=== PATIENT | female | born 1985 | race Caucasian/White ===

== ENCOUNTER 2023-03-30 09:06 | Day surgery (SDC) | payer BC ==
[2023-03-30] MEDS ORDERED: Acetaminophen 500 MG TAB ONE (09:17)
[2023-03-30] MEDS ORDERED: Iron Sucrose Complex 500 MG in Sodium Chloride 0.9% 250 ML 250 ML IVPB SCH (09:30)
[2023-03-30] MEDS ORDERED: Acetaminophen 500 MG TAB PO SCH (09:30)
== END 2023-03-30 14:00 | disposition home or self-care (01) ==
LOC: CSHSDC 09:06
PROVIDERS: ATTEND Advanced Practice Midwife
DX: O99.019 Anemia complicating pregnancy, unspecified trimester (principal); D64.9 Anemia, unspecified; Z3A.00 Weeks of gestation of pregnancy not specified
CPT/HCPCS: J1756; J7050

== ENCOUNTER 2023-04-17 09:56 | Inpatient (IN) | payer BC ==
[2023-04-17 10:17] VITALS: BMI 31.8
[2023-04-17 11:15] LABS: ALT (SGPT) 18 U/L (8-55); AST (SGOT) 19 U/L (5-34); Albumin 3.5 g/dL (3.5-5.0); Alkaline Phosphatase 162 U/L (40-110); Anion Gap 15 mmol/L (10-20); BUN (Urea Nitrogen) 7 mg/dL (7.0-18.7); Bilirubin, Total 0.4 mg/dL (0.2-1.2); Calc. Creatinine Clearance 190 mL/min (70-130); Carbon Dioxide 18 mmol/L (22-29); Chloride 108 mmol/L (98-107); Estimated GFR 124; Globulin 3.5 g/dL (2.4-3.5); Glucose 119 mg/dL (70-105); Potassium 3.6 mmol/L (3.5-5.1); Sodium 137 mmol/L (136-145)
[2023-04-17 11:21] LABS: #Eosinphils 0.1 10x3/uL (0.0-0.5); #Monocytes 0.5 10x3/uL (0.0-1.1); #Neutrophils 4.6 10x3/uL (1.5-8.4); %Basophils 0.4 % (0.0-2.0); %Eosinophils 1.9 % (0.0-6.0); %Lymphocytes 26.5 % (18.0-47.0); %Neutrophils 63.1 % (40.0-75.0); Hemoglobin 11.7 g/dL (12.0-15.5); Mean Corpuscular HGB CONC 31.6 g/dL (32.0-36.0); Mean Corpuscular Hemoglobin 20.9 pg (27.0-33.0); Mean Platelet Volume 9.8 fl (7.4-10.4); Platelet Count 372 10x3/uL (150-450); RBC Distribution Width 20.5 % (11.5-14.5); Red Blood Cell (RBC) Count 5.61 10x6/uL (3.90-5.03); White Blood Cell (WBC) Count 7.3 10x3/uL (3.5-10.5)
[2023-04-17 12:13] LABS: Anisocytosis MARKED = >30 cells (100X) (0-5/hpf); Microcytosis MARKED = >30 cells (100X) (0-5/hpf); Platelet Adequacy Comment Appears Adequate
[2023-04-17] MEDS ORDERED: Ibuprofen 800 MG TAB PO PRN (12:49)
[2023-04-17] MEDS ORDERED: Misoprostol 200 MCG TAB PR PRN (12:49)
[2023-04-17] MEDS ORDERED: Calcium Gluc 4.6 MEQ/10 ML (100 MG/ML) SLOW IVP PRN (12:49)
[2023-04-17] MEDS ORDERED: Promethazine HCl 25 MG/ML VIAL IM PRN ×2 (12:49→20:14)
[2023-04-17] MEDS ORDERED: Lidocaine 1% (PF) 30 ML VIAL SC PRN (12:49)
[2023-04-17] MEDS ORDERED: hydrALAZINE 20 MG/ML VIAL SLOW IVP PRN (12:49)
[2023-04-17] MEDS ORDERED: Lorazepam 2 MG/ML VIAL SLOW IVP PRN (12:49)
[2023-04-17] MEDS ORDERED: Ondansetron PF 4 MG/2 ML Vial IVP PRN ×2 (12:49→20:14)
[2023-04-17] MEDS ORDERED: HYDROcodone/Acetaminophen 5/325 mg Tablet PO PRN ×2 (12:49)
[2023-04-17] MEDS ORDERED: Labetalol HCl 100 MG/20 ML VIAL SLOW IVP PRN ×2 (12:49)
[2023-04-17] MEDS ORDERED: Oxytocin 30 units/NS 500 ML 500 ML IV SCH ×2 (13:00)
[2023-04-17] MEDS ORDERED: Lactated Ringer's 1,000 ML IV SCH (13:00)
[2023-04-17 14:15] LABS: Syphilis Antibody Nonreactive (Nonreactive); Syphilis Antibody Index 0.08 S/CO (<1.00 Non-Reactive)
[2023-04-17 14:17] LABS: HBSAg Index 0.15 S/CO (0-0.99); Hep B Surf Ag - L&D Non-Reactive S/CO (NonReactive)
[2023-04-17] MEDS ORDERED: Magnesium Sulfate 20 gm/500 ml 20 GM/500 ML BAG ONE ×2 (20:05→23:50)
[2023-04-17] MEDS: hydrALAZINE 20 MG/ML VIAL SLOW IVP PRN ×2 (20:09→23:53)
[2023-04-17] MEDS ORDERED: fentaNYL/Ropivacaine Epidural 0 ML ONE (20:12)
[2023-04-17] MEDS ORDERED: diphenhydrAMINE 50 MG/ML VIAL IVP PRN (20:14)
[2023-04-17] MEDS ORDERED: Acetaminophen 325 MG TAB PO PRN (20:14)
[2023-04-17] MEDS ORDERED: ePHEDrine Sulfate 50 MG/10 ML VIAL SLOW IVP PRN (20:14)
[2023-04-17] MEDS ORDERED: Lactated Ringer's 500 ML IV PRN (20:14)
[2023-04-17] MEDS ORDERED: Naloxone HCl 0.4 mg/ml Vial IVP PRN ×2 (20:14)
[2023-04-17] MEDS ORDERED: Moisturizing Cream (Eucerin) 113 GM JAR TOP PRN (20:14)
[2023-04-17] MEDS ORDERED: Communication Order-Pharmacy FS SCH (20:15)
[2023-04-17] MEDS ORDERED: fentaNYL 2 mcg/Ropivacaine 0.2% Epidural 100 ML CADD EPIDURAL SCH (20:15)
[2023-04-17] MEDS ORDERED: Lidocaine 1% PF 10 ML AMP ONE ×2 (21:00→22:00)
[2023-04-17] MEDS ORDERED: Lidocaine 1% (PF) 30 ML VIAL ONE (22:01)
[2023-04-17] MEDS ORDERED: fentaNYL 50 mcg/mL 1 mL Vial ONE (22:36)
[2023-04-17] MEDS ORDERED: Tranexamic Acid 1,000 MG/10 ML VIAL ONE (22:41)
[2023-04-17] MEDS ORDERED: Carboprost 250 MCG/ML AMP ONE (22:42)
[2023-04-17] MEDS ORDERED: Methylergonovine 0.2 MG/ML VIAL ONE (22:42)
[2023-04-17] MEDS ORDERED: CEFAZOLIN 2 GM VIAL ONE (23:09)
[2023-04-17] MEDS ORDERED: Benzocaine/Menthol 1 LOZ LOZ PO PRN (23:49)
[2023-04-18] MEDS ORDERED: hydrALAZINE 20 MG/ML VIAL ONE (00:25)
[2023-04-18] MEDS ORDERED: CEFAZOLIN 2 GM VIAL SLOW IVP SCH (06:00)
[2023-04-18] MEDS: Ibuprofen 800 MG TAB PO SCH ×3 (06:12→22:09)
[2023-04-18 06:50] LABS: #Neutrophils 12.5 10x3/uL (1.5-8.4); %Basophils 0.2 % (0.0-2.0); %Eosinophils 0.1 % (0.0-6.0); %Lymphocytes 12.9 % (18.0-47.0); %Monocytes 6.4 % (0.0-10.0); %Neutrophils 79.8 % (40.0-75.0); Hematocrit 29.7 % (34.9-44.5); Hemoglobin 9.7 g/dL (12.0-15.5); Mean Corpuscular HGB CONC 32.7 g/dL (32.0-36.0); Mean Corpuscular Hemoglobin 21.3 pg (27.0-33.0); Mean Corpuscular Volume 65.1 fl (81.6-98.3); Mean Platelet Volume 9.5 fl (7.4-10.4); Platelet Count 309 10x3/uL (150-450); RBC Distribution Width 19.7 % (11.5-14.5); Red Blood Cell (RBC) Count 4.56 10x6/uL (3.90-5.03); White Blood Cell (WBC) Count 15.6 10x3/uL (3.5-10.5)
[2023-04-18 07:09] LABS: Anion Gap 14 mmol/L (10-20); BUN (Urea Nitrogen) 5 mg/dL (7.0-18.7); Calc. Creatinine Clearance 202 mL/min (70-130); Carbon Dioxide 18 mmol/L (22-29); Chloride 105 mmol/L (98-107); Potassium 3.6 mmol/L (3.5-5.1); Sodium 133 mmol/L (136-145)
[2023-04-18 07:10] LABS: ALT (SGPT) 19 U/L (8-55); AST (SGOT) 36 U/L (5-34); Albumin 2.7 g/dL (3.5-5.0); Alkaline Phosphatase 118 U/L (40-110); Bilirubin, Total 0.5 mg/dL (0.2-1.2); Calcium 7.5 mg/dL (7.8-10.44); Estimated GFR 126; Globulin 2.7 g/dL (2.4-3.5); Glucose 113 mg/dL (70-105); Protein, Total 5.4 g/dL (6.0-8.3)
[2023-04-18] MEDS: Magnesium Sulfate 20 gm/500 ml 20 GM/500 ML BAG IVPB SCH ×2 (08:01→17:59)
[2023-04-18] MEDS ORDERED: Boostrix 0.5 ML (Tdap) VIAL (>/=7 yrs of age) IM ONE (20:31)
[2023-04-18] MEDS ORDERED: Milk Of Magnesia 30 ML UDCUP PO PRN (20:31)
[2023-04-18] MEDS ORDERED: HYDROcodone/Acetaminophen 5/325 mg Tablet PO PRN ×2 (20:31)
[2023-04-18] MEDS ORDERED: Lanolin Ointment 7 GM TUBE TOP PRN (20:31)
[2023-04-18] MEDS ORDERED: hydrALAZINE 20 MG/ML VIAL SLOW IVP PRN (20:31)
[2023-04-18] MEDS ORDERED: Bisacodyl 10 MG SUPP PR PRN (20:31)
[2023-04-18] MEDS ORDERED: Benzocaine-Menthol 82.5 ML CAN TOP PRN (20:31)
[2023-04-18] MEDS: NIFEdipine XL 30 MG ER.TAB PO SCH (21:39)
[2023-04-18] MEDS: Docusate 100 MG CAP PO SCH (21:39)
[2023-04-19] MEDS: Ibuprofen 800 MG TAB PO SCH ×3 (05:13→21:16)
[2023-04-19] MEDS: Ferrous Sulfate 325 MG TAB PO SCH ×2 (07:59→17:02)
[2023-04-19] MEDS: Docusate 100 MG CAP PO SCH ×2 (07:59→21:16)
[2023-04-19] MEDS ORDERED: Prenatal Vitamin 1 TAB PO SCH (09:00)
[2023-04-19] MEDS ORDERED: NIFEdipine XL 30 MG ER.TAB PO SCH (21:00)
[2023-04-19] MEDS: NIFEdipine XL 30 MG ER.TAB PO SCH (21:17)
[2023-04-20] MEDS: Ibuprofen 800 MG TAB PO SCH (05:30)
[2023-04-20 07:38] VITALS: BP 138/74; TEMP 97.7
== END 2023-04-20 10:00 | disposition home or self-care (01) | DRG 807 ==
LOC: CSHLD/OP 09:56 → CSHLD 15:21 → CSHANTE 23:45 → CSHLD 04-18 00:06 → CSHPP 04-18 21:00
PROVIDERS: ADMIT Obstetrics & Gynecology; ATTEND Obstetrics & Gynecology
PROC: 10E0XZZ Delivery of Products of Conception, External Approach (ICD-10-PCS; principal; 2023-04-17)
PROC: 3E033XZ Introduction of Vasopressor into Peripheral Vein, Percutaneous Approach (ICD-10-PCS; 2023-04-17)
DX: O14.04 Mild to moderate pre-eclampsia, complicating childbirth (principal); Z37.0 Single live birth; Z3A.38 38 weeks gestation of pregnancy; O09.523 Supervision of elderly multigravida, third trimester; O70.1 Second degree perineal laceration during delivery
CPT/HCPCS: 36415; 80053; 82570; 84156; 85025; 86780; 86850; 86900; 86901; 87340; J0360; J2001; J2590; J3010; J3475